=== PATIENT | female | born 2000 | race Two or more races ===

== ENCOUNTER 2018-06-01 22:32 | Emergency (ER) | payer MEDICAID, OTHER ==
[~2018-06-01] VITALS: Ht 167.6 cm; Wt 72.6 kg
[2018-06-01 23:01] VITALS: BP 129/77
== END 2018-06-02 02:15 | disposition left against medical advice (07) ==
LOC: ER 22:53
DX: L50.9 Urticaria, unspecified (principal); Z53.21 Procedure and treatment not carried out due to patient leaving prior to being seen by health care provider